=== PATIENT | female | born 1975 | race Caucasian/White ===

== ENCOUNTER 2020-05-01 06:42 | Day surgery (SDC) | payer BC, SELFPAY ==
[~2020-05-01] VITALS: Ht 149.9 cm; Wt 47.6 kg
[2020-05-01] MEDS ORDERED: SIMETHICONE 40 MG/0.6 ML ML ONE (07:12)
[2020-05-01] MEDS: MIDAZOLAM HCL 5 MG/5 ML VIAL ONE ×2 (07:53→07:55)
[2020-05-01] MEDS: fentaNYL CITRATE/PF 100 MCG/2 ML AMP ONE ×2 (07:54→07:56)
[2020-05-01 08:10] VITALS: BP_SYST 97
== END 2020-05-01 09:00 | disposition home or self-care (01) ==
LOC: SDS 06:42 → SMU 06:47 → SDS 09:00
PROVIDERS: ATTEND Internal Medicine
DX: R10.13 Epigastric pain (principal); K29.50 Unspecified chronic gastritis without bleeding; K44.9 Diaphragmatic hernia without obstruction or gangrene; Z20.828 Contact with and (suspected) exposure to other viral communicable diseases; Z79.899 Other long term (current) drug therapy
CPT/HCPCS: 36415; 43239; 82962; 87081; 88305; 88312; 88313; 99152; G0378; J2250; J3010; J7030; U0003